=== PATIENT | male | born 1950 | race Caucasian/White ===

== ENCOUNTER 2018-03-01 16:16 | Emergency (ER) | payer OTHER ==
[~2018-03-01] VITALS: Ht 162.6 cm; Wt 65.8 kg
[2018-03-01] MEDS ORDERED: JANUMET XR 1001 EACH (16:46)
[2018-03-01] MEDS ORDERED: GLIPIZIDE XL2.5 MG (16:46)
[2018-03-01] MEDS ORDERED: LEVOTHYROXINE88 MCG (16:47)
[2018-03-01] MEDS ORDERED: LISINOPRIL-HCT1 EAC1 (16:47)
[2018-03-01] MEDS ORDERED: TAMS0.4C (16:47)
[2018-03-01] MEDS ORDERED: LIPITOR20 MG (16:48)
[2018-03-01] MEDS ORDERED: VITAMIN D250000 UNIT (16:48)
[2018-03-01] MEDS ORDERED: SEROPHENE50 MG (16:48)
== END 2018-03-01 19:57 | disposition home or self-care (01) ==
LOC: ER 16:16
DX: L03.032 Cellulitis of left toe (principal)

== ENCOUNTER 2019-01-25 18:00 | Emergency (ER) | payer OTHER ==
[~2019-01-25] VITALS: Ht 162.6 cm; Wt 70.3 kg
[~2019-01-25 18:00] MED LIST: GLIPIZIDE XL2.5 MG; JANUMET XR 1001 EACH; LEVOTHYROXINE88 MCG; LIPITOR20 MG; LISINOPRIL-HCT1 EAC1; SEROPHENE50 MG; TAMS0.4C; VITAMIN D250000 UNIT
== END 2019-01-25 21:49 | disposition home or self-care (01) ==
LOC: ER 18:00
DX: B02.8 Zoster with other complications (principal)

== ENCOUNTER 2019-02-21 16:10 | Emergency (ER) | payer OTHER ==
[~2019-02-21] VITALS: Ht 162.6 cm; Wt 68.0 kg
== END 2019-02-21 16:52 | disposition home or self-care (01) ==
LOC: ER 16:10
DX: M54.2 Cervicalgia (principal)